=== PATIENT | female | born 1960 | race Caucasian/White ===

== ENCOUNTER 2025-08-14 10:57 | Outpatient (CLI) | payer MEDICARE, MEDICAID, SELFPAY ==
--- NOTE | ~2025-08-14 | XR_ITS ---
EXAMINATION: XR finger 5th LT min 2V, 08/14/2025 11:20 CDT HISTORY: M20.039 - [place]-neck deformity of unspecified finger(s), COMPARISON: No comparisons available. Findings: No acute fracture or malalignment. Moderate degenerative changes with deformity of the digit noted with the distal interphalangeal joint held in flexion. Soft tissues unremarkable. Impression: No acute fracture or malalignment. Reviewed, dictated and finalized at location P. Impression: No acute fracture or malalignment.
--- OUTSIDE RECORDS SUMMARY | 2025-08-14 13:54 | XMS_ITS | Patient Health Record ---
Author Organization [facility] As [employer] Address [address] [place] [address] Care Team Providers Care Return To Vendor Name Role Phone Willow Lala Unavailable [phone] Reason For Referral No Information Medications Medication SIG (Take, Route, Frequency, Duration) Notes Start Date End Date Status Tymlos 80 mcg (3,120 mcg/1.56 mL) Solution Pen-injector Subcutaneous *Pick strength-form from [employer] Pix[employer] for eRX* 04/23/2022 Active Cyclobenzaprine HCl 10 MG Tablet Oral 04/23/2022 Active DULoxetine HCl 30 MG Capsule Delayed Release Particles Oral 04/23/2022 Active Naproxen 500 MG Tablet Oral 04/23/2022 Active Relistor 150 mg Tablet Oral 04/23/2022 Active Morphine Sulfate ER 15 MG Tablet Extended Release Oral 04/23/2022 Active Escitalopram Oxalate 5 MG Tablet Oral 04/23/2022 Active DULoxetine HCl 60 MG Capsule Delayed Release Particles Oral 04/23/2022 Active busPIRone HCl 10 MG Tablet Oral 04/23/2022 Active oxyCODONE-Acetaminophen 10-325 MG Tablet Oral 04/23/2022 Active Pregabalin 50 MG Capsule Oral 04/23/2022 Active Morphine Sulfate ER 30 MG Tablet Extended Release Oral 04/23/2022 Active Pregabalin 100 MG Capsule Oral 04/23/2022 Active Immunizations Vaccine Route Administration Date Status Comme nts Moderna Covid-19 Vaccine 1st dose Unknown 03/20/2021 Ad ministered Moderna Covid-19 Vaccine 1st dose Unknown 04/17/2021 Ad ministered Moderna Covid-19 Vaccine 1st dose Unknown 11/11/2021 Ad ministered Social History Social History Additional Details Category Social Info Options Details Migrated Social History Migrated Social History Alcohol Intake: None 03/24/2022,Tobacco Years: Former smoker 03/24/2022 Plan Of Treatment No Information Insurance Providers Payer Name Payer Address Payer Phone Subscriber Number Group Number Insured Name Patient Relationship to Insured Coverage Start Date Coverage End Date [employer] Medicare Replacemen t/Advantag e - Ppo [address] [place] RODRIGUEZ [phone] [id number] REMBERTO PERES Self - patient is the insured Medical (General) History Surgical History Surgery Date(Month/Year) Hysterectomy (59768) 12/19/2003
--- OUTSIDE RECORDS SUMMARY | 2025-08-14 13:54 | XMS_ITS | Encounter Summary ---
Author Organization [facility] Healthcare Address [address] [place] [address] Care Team Providers Care Fire Regulator Name Role Phone Greg Brewer PT Unavailable Unavailable Savannah Davies PTA Unavailable Unavailab Tj Interiano MD Primary Care Provider + [phone] Reason for Visit * Reason Onset Date Comments Scheduling Appointments 10/14/2020 confirme d dexa Encounter Details Date Type Department Care Team (Late st Contact Info) Description 10/14/2020 Telephone [facility] [address] [place] [id number] Renu Walls RT Scheduling Appointments (confirmed dexa ) Social History Tobacco Use Types Packs/Day Years Used Date Smoking Tobacco: Former Cigarettes Q uit: 2001 Smokeless Tobacco: Never Alcohol Use Standard Drinks/Week Comments No 0 (1 standard drink = 0.6 oz pur e alcohol) PHQ-2 Answer Date Recorded PHQ-2 Score 6 06/16/2019 Comments No Sex and Gender Information Value Date Recorded Sex Assigned at Not on file 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 Author [facility] Chronic Pain Care Plan Chronic Care Management No change(08/03 9:57 AM CDT) No Viry Eduardo RN Note: Problem: Chronic Pain Goals: 1. Minimize further functional decline 2. Maximize quality of life 3. Control pain Strategies: - Activity/exercise program recommendation - Conservative stepwise pain medicine strategy with multi-disciplinary approach - Recommend healthy lifestyle strategies and compensatory methods as needed documented as of this encounter Visit Diagnoses Not on filedocumented in this encounter Care Teams Fire Regulator Relationship Specialty Start Date End Date Tj Aceves MD [address] [place] [address] PCP - General 07/24/20 Greg Brewer, PT Physical Therapist Physical Therapy 04/21/18 Savannah Davies, GREEN PIPEFITTER Physical Therapist Physical Therapy 05/04/18 documented as of this encounter
--- OUTSIDE RECORDS SUMMARY | 2025-08-14 13:54 | XMS_ITS | Clinical Summary ---
Author Organization [facility] [id number] [facility] Address [address] [place] [address] Care Team Providers Care Bottle Capper Name Role Phone Tj Aceves MD Primary Care Provider [phone] Allergies No known active allergies Medications DULoxetine (CYMBALTA) 20 mg Capsule, Delayed Release(E.C.) Take 20 mg by mouth daily. Active busPIRone (BUSPAR) 10 mg tablet Take 10 mg by mouth 3 times daily. Active HYDROcodone-acet aminophen (NORCO) 5-325 mg tablet Take 1 Tablet by mouth every 4 hours as needed for Pain, Moderate. Active Active Problems Problem Noted Date Diagnosed Date Synovial cyst of lumbar facet joint 08/20/2020 Postlaminectomy syndrome, lumbar region 08/20/20 20 Cervical spondylosis with myelopathy 08/20/2020 Family History Relation Name Status Comments Father Mother Alive Social History Tobacco Use Types Packs/Day Years Used Date Smoking Tobacco: Former Cigarettes Q uit: 2008 Alcohol Use Standard Drinks/Week Comments Yes 0 (1 standard drink = 0.6 oz pur e alcohol) Comments Unknown Sex and Gender Information Value Date Recorded Sex Assigned at Not on file Legal Sex Female 8:52 AM CDT Gender Identity Not on file Sexual Orientation Not on file Last Filed Vital Signs Vital Sign Reading Time Taken Comments Blood Pressure - - Pulse - - Temperature 37 C (98.6 F) 08/20/2020 11:46 AM CDT Respiratory Rate - - Oxygen Saturation - - Inhaled Oxygen Concentration - - Weight 56.7 kg (125 lb) 08/20/2020 11:46 AM CDT Height 167.6 cm (5' 6) 08/20/2020 11:46 AM CDT Body Mass Index 20.18 08/20/2020 11:46 AM CDT Plan of Treatment Health Maintenance Due Date Last Done Comments DTAP/TDAP/TD VACCINES (1 - Tdap) 01/16/1979 BREAST CANCER SCREENING 2000 COLORECTAL SCREENING 01/16/2005 Colorectal Cancer Screening 01/16/2005 FIT-DNA Q 3 years 01/16/2005 FIT/FOBT Q 1 year 01/16/2005 Flex Sig/CT Colonography Q 5 years 01/16/2005 PNEUMOCOCCAL VACCINE 50+ YEARS (1 of 1 - PCV) 01/17/20 10 ZOSTER VACCINE (1 of 2) 01/16/2010 OSTEOPOROSIS SCREENING 01/16/2025 INFLUENZA VACCINE (#1) 2025 08/10/2018 RSV VACCINE (60+ or ) (1 - 1-dose 75+ series) 01/16/2035 Insurance [employer] PPO MCR Care Teams Bottle Capper Relationship Specialty Start Date End Date Tj Aceves MD [address] [place] [phone] PCP - General Family Practice 05/30/20
--- OUTSIDE RECORDS SUMMARY | 2025-08-14 13:54 | XMS_ITS | Clinical Summary ---
Author Organization [facility] [place] Address [address] [place] [address] Care Team Providers Care Comic Writer Name Role Phone Greg Brewer PT Unavailable Unavailable Savannah Davies PTA Unavailable Unavailab Tj Interiano MD Primary Care Provider + [phone] Allergies Active Allergy Reactions Criticality Noted Date Comments Ragweed Other (See comments) Low 06/16/2017 congestion Medications methylnaltrexon e (Relistor) 150 mg tablet Take 3 tablets by mouth daily as needed Active ALPRAZolam (XANAX) 0.5 mg tablet Take by mouth every 6 (six) hours as needed 09/29/2023 Active amitriptyline (ELAVIL) 50 mg tablet Take 1 tablet (50 mg total) by mouth nightly Active ergocalciferol (VITAMIN D) 50,000 unit capsule TAKE 1 CAPSULE BY MOUTH 1 TIME EVERY WEEK Active DULoxetine DR (CYMBALTA) 60 mg capsule Take 1 capsule (60 mg total) by mouth daily 07/11/2024 Active oxyCODONE (ROXICODONE) 10 mg tablet Take 1 tablet (10 mg total) by mouth as needed 07/11/2024 Active ibuprofen 200 mg tab/cap Take 2 tablet/capsu le (400 mg total) by mouth every 8 (eight) hours as needed for pain Active Movantik 25 mg tablet Take 1 tablet (25 mg total) by mouth every morning 08/07/2024 Active Active Problems Problem Noted Date Diagnosed Date Other osteoporosis without current pathological fracture 09/01/2024 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 05/21/2024 Osseous and subluxation sten osis of intervertebral foramina of lumbar region 05/21/2024 Connective tissue and disc s tenosis of intervertebral foramina, lumbar region 08/12/2022 Overview (08/12/2022): Added automatically from request for surgery [id number] Displacement of lumbar intervertebral disc 12/28 Synovial cyst of lumbar facet joint 08/20/2020 Venous insufficiency 05/11/2019 Abnormal electrocardiogram 04/24/2019 Generalized anxiety disorder 04/24/2019 Localized edema 04/24/2019 Pain in unspecified limb 04/24/2019 Personal history of nicotine dependence 04/24/20 Cervical post-laminectomy syndrome 09/05/2018 Encounter for screening colonoscopy 08/30/2018 Overview (08/30/2018): Added automatically from request for surgery [id number] Screening for breast cancer 08/10/2018 Screening for colon cancer 08/10/2018 Need for influenza vaccination 08/10/2018 Lumbar radiculopathy 06/22/2018 Chronic bilateral low back pain with right-sided sciatica 05/25/2018 Lumbar post-laminectomy syndrome 05/25/2018 Sciatica, right side 05/25/2018 Other chronic pain 05/25/2018 Assessment & Plan (08/10/2018 8:48 PM CDT): Followed by Pain Management-Dr. Nunes. She is dx with Complex regional pain syndrome of right lower extremity He has tried lyrica, baclofen and caudal epidural steroid injections Lumbago 05/04/2018 Complex regional pain syndro me type 1 of right lower extremity 04/25/2018 Syncope 04/21/2018 Assessment & Plan (04/21/2018 5:00 PM CDT): Pt. Reports passing out at home. Pt. States she got up to try to walk and passed out. She states the pain was so severe she did not know if that caused her to pass out. She denies hitting head or hurting herself. Last EKG on 02/26/18 showed sinus rhythm with Incomplete RBBB-I do not see any other ekg's to look compare to. There is mention of patient having a history of WI in MR but I do not see any other documentation to confirm and pt. Is unaware of every having a WI. Other insomnia 04/20/2018 Assessment & Plan (08/10/2018 8:55 PM CDT): Pt. Continues to report insomnia. Reports she only sleeps 2-4 hours per night because of her pain. She is on Trazodone, Amitriptyline for sleep. Reports fatigue all the time She continues to report if she could sleep she would feel much better. Recommend she get a sleep evaluation done by Dr. Linton Vitamin D deficiency 04/20/2018 Assessment & Plan (08/10/2018 2:48 PM CDT): Will renew dose Assessment & Plan (04/21/2018 7:17 PM CDT): Pt. Had a very low Vit D level in 2015 but never was told to take any supplements. I will recheck her Vit D level and start a Vit D replacement. Polyneuropathy 04/20/2018 Assessment & Plan (08/10/2018 8:44 PM CDT): Pt. Reports right leg with severe burning pain with numbness, tingling. Pt. Reports that her feet always feel cold although they are not cold to touch. Pt. Reports a hard time sleeping because of the pain. She states it hurts to walk on it. Pt. Did walk into the office today with assistive devices (cane) and gait was abnormal. Pt. States her legs hurt to even have her pant leg touch it or for me to touch it. She states that this began and has gotten worse since her surgery in February. 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 She went to the ER on 04/04/18- with c/o severe right lower extremity pain which onset one year ago after falling but worsened one month ago after having surgery. She also has back pain. She has tried Ibuprofen and Oxycodone with no relief. Patient denies any bowel or bladder Although reports urinary urgency and some stress/urge incontinence. She did follow up with Dr. Samuel but he told her to see pain management. She did have a nerve conduction test in 2016 because of lower extremity weakness-it showed 1. VERY MILD BILATERAL MEDIAN SENSORY ENTRAPMENT NEUROPATHY AT THE FLEXOR RETINACULUM, FOR EXAMPLE CARPAL TUNNEL SYNDROME. 2. MILD RIGHT ULNAR ENTRAPMENT NEUROPATHY AT GUYON'S CANAL. THERE WAS NO ELECTROPHYSIOLOGICAL EVIDENCE SUGGESTIVE OF SIGNIFICANT LARGE FIBER NEUROPATHY OF BILATERAL LOWER EXTREMITIES. THE NEEDLE EMG STUDY DID NOT SHOW ANY ONGOING DENERVATION. In December 2017 she had arterial doppler which The right and left ankle-brachial indices measure 1.1 and 1.06, respectively-NORMAL Pt. Also had similar reports of progressive leg weakness and burning pain of legs and had an MRI done 2015-showed IMPRESSION: 1. MINIMAL SCATTERED NONSPECIFIC WHITE MATTER CHANGES. 2. OTHERWISE NORMAL NONCONTRAST MRI OF THE BRAIN. It looks like she was worked up in 2016 with labs-AISHWARYA, RF, ESR, CK, B12, Vit D, immunofixation electrophoresis, protein electrophoresis which were all negative. Completed a round of steroids but reports no improvement Pain management-Dr. Nunes from [facility] is evaluating patient Recent labs were unremarkable Repeat Nerve conduction test showed: EMG done 08/03/18 FINDINGS: 1. The distal latencies, conduction velocities and amplitudes of the bilateral median nerves, ulnar nerves and sensory radial nerves are within normal limits. 2. The distal latencies, conduction velocities and amplitudes of the bilateral peroneal and posterior tibial nerves are within normal limits. 3.The sural nerve responses could not be obtained. 4.No abnormalities noted on needle EMG examination of selected muscles in the right lower extremity. IMPRESSION: 1.No significant abnormalities on the above study except for absent sural nerve responses. This may reflect a mild or early sensory neuropathy. It should be noted that a normal EMG evaluation does not entirely rule out the possibility of a radiculopathy. Clinical correlation is recommended. She did see Dr. Stephenson (neurology) and another neurologist that specializes in neuropathy for a second opinion. She has not tolerated Lyrica. Baclofen, Tizanidine has not helped. She stated that ibuprofen seemed to help the most Assessment & Plan (06/12/2018 11:21 PM CDT): Pt. Reports right leg with severe burning pain with numbness, tingling. Pt. Reports that her feet always feel cold although they are not cold to touch. Pt. Reports a hard time sleeping because of the pain. She states it hurts to walk on it. Pt. Did walk into the office today with assistive devices (cane) and gait was abnormal. Pt. States her legs hurt to even have her pant leg touch it or for me to touch it. She states that this began and has gotten worse since her surgery in February. 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 She went to the ER on 04/04/18- with c/o severe right lower extremity pain which onset one year ago after falling but worsened one month ago after having surgery. She also has back pain. She has tried Ibuprofen and Oxycodone with no relief. Patient denies any bowel or bladder dysfunction. She did follow up with Dr. Samuel but he told her to see pain management. She did have a nerve conduction test in 2016 because of lower extremity weakness-it showed 1. VERY MILD BILATERAL MEDIAN SENSORY ENTRAPMENT NEUROPATHY AT THE FLEXOR RETINACULUM, FOR EXAMPLE CARPAL TUNNEL SYNDROME. 2. MILD RIGHT ULNAR ENTRAPMENT NEUROPATHY AT GUYON'S CANAL. THERE WAS NO ELECTROPHYSIOLOGICAL EVIDENCE SUGGESTIVE OF SIGNIFICANT LARGE FIBER NEUROPATHY OF BILATERAL LOWER EXTREMITIES. THE NEEDLE EMG STUDY DID NOT SHOW ANY ONGOING DENERVATION. In December 2017 she had arterial doppler which The right and left ankle-brachial indices measure 1.1 and 1.06, respectively-NORMAL Pt. Also had similar reports of progressive leg weakness and burning pain of legs and had an MRI done 2016-showed IMPRESSION: 1. MINIMAL SCATTERED NONSPECIFIC WHITE MATTER CHANGES. 2. OTHERWISE NORMAL NONCONTRAST MRI OF THE BRAIN. It looks like she was worked up in 2016 with labs-AISHWARYA, RF, ESR, CK, B12, Vit D, immunofixation electrophoresis, protein electrophoresis which were all negative. Completed a round of steroids but reports no improvement Pain management-Dr. uNnes from [facility] is evaluating patient Recent labs were unremarkable Since her last nerve conduction test in 2016, she has had increase symptoms and changes in her MRI. I recommend getting another nerve conduction test and consult Neurology ( neuropathy specialist) and Rheumatology Assessment & Plan (04/21/2018 8:05 PM CDT): Pt. Reports right leg with severe burning pain with numbness, tingling. Pt. Reports a hard time sleeping because of the pain. She states it hurts to walk on it. Pt. Did walk into the office today without any assistive devices but gait was abnormal. Pt. States her legs hurt to even have her pant leg touch it or for me to touch it. She states that this began and has gotten worse since her surgery in February. 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 She went to the ER on 04/04/18- with c/o severe right lower extremity pain which onset one year ago after falling but worsened one month ago after having surgery. She also has back pain. She has tried Ibuprofen and Oxycodone with no relief. Patient denies any bowel or bladder dysfunction. She did follow up with Dr. Samuel but he told her to see pain management. She has not been able to see them-it may be related to finding a provider that accepts her insurance. She did have a nerve conduction test in 2016 because of lower extremity weakness-it showed 1. VERY MILD BILATERAL MEDIAN SENSORY ENTRAPMENT NEUROPATHY AT THE FLEXOR RETINACULUM, FOR EXAMPLE CARPAL TUNNEL SYNDROME. 2. MILD RIGHT ULNAR ENTRAPMENT NEUROPATHY AT GUYON'S CANAL. THERE WAS NO ELECTROPHYSIOLOGICAL EVIDENCE SUGGESTIVE OF SIGNIFICANT LARGE FIBER NEUROPATHY OF BILATERAL LOWER EXTREMITIES. THE NEEDLE EMG STUDY DID NOT SHOW ANY ONGOING DENERVATION. In December 2017 she had arterial doppler which The right and left ankle-brachial indices measure 1.1 and 1.06, respectively-NORMAL Pt. Also had similar reports of progressive leg weakness and burning pain of legs and had an MRI done 2016-showed IMPRESSION: 1. MINIMAL SCATTERED NONSPECIFIC WHITE MATTER CHANGES. 2. OTHERWISE NORMAL NONCONTRAST MRI OF THE BRAIN. It looks like she was worked up in 2016 with labs-AISHWARYA, RF, ESR, CK, B12, Vit D, immunofixation electrophoresis, protein electrophoresis which were all negative. Will try some steroids to help with pain and inflammation Consult pain management Get labs-cbc, cmp, esr, crp Shortness of breath 04/20/2018 Tick bite 04/20/2018 Assessment & Plan (04/21/2018 7:18 PM CDT): Pt. Had tick bite to left side about 3-4 days ago. States her daughter pulled it off. She does have a red lesion about 3cm. Will give her a one time dose of Doxycyline and continue to monitor. Pt. Already had her symptoms prior to getting a tick bite. s/p Right L4-5 ana maria-laminectomy on 02/22/201810/2017 Right L4-5 lateral recess stenosis 01/24/2018 s/p C3-C7 laminectomy and C2 -T1 posterior spinal fusion on 11/02/2017 11/02/2017 Assessment & Plan (04/20/2018 11:57 AM CDT): PROCEDURE 1. C3-C7 laminectomy 2. C2-T1 posterior cervical fusion 3. Allograft 4. Use of Autograft By Dr. Samuel Cervical spondylosis with myelopathy 10/01/2017 Major depressive disorder without psychotic feat ures 06/16/2017 Abnormal gait 06/03/2016 Overview (01/28/2017): Abnormal gait Assessment & Plan (06/10/2018 9:23 AM CDT): recommend she see neurologist again. She saw Dr. Duckworth back in 2015 and worked up. At that time labs were negative and her MRI of her spine had no stenosis. Since then, she has had MRI's of her C-spine which showed significant changes-cord compression, stenosis, etc-IMPRESSION: C3-C4 SPONDYLOSIS , LEFT CENTRAL OSTEOPHYTE, CORD COMPRESSION AND MODERATE TO SEVERE CENTRAL WITH MODERATE LEFT FORAMINAL STENOSIS. C4-C5 SPONDYLOSIS, SHORT PEDICLES, SEVERE CENTRAL STENOSIS, CORD COMPRESSION, AND MODERATE TO SEVERE FORAMINAL STENOSIS. C5-C6 SPONDYLOSIS WITH RIGHT CENTRAL OSTEOPHYTE, CORD COMPRESSION, SEVERE CENTRAL AND [id number] FORAMINAL STENOSIS. C6-C7 SPONDYLOSIS WITH MILD CENTRAL AND MODERATE LEFT FORAMINAL STENOSIS. FOCAL CORD SIGNAL CHANGE AT C5 AND C6 SUGGESTING MYELOMALACIA. 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 She had spine surgery by Dr. Samuel. Also showed: An ovoid circumscribed nonspecific 2.5 x 2 cm right paramedian subcutaneous nodule is seen centered at T2-T3 possibly sebaceous or epidermal inclusion cyst. She needs a repeat Mri or Thoracic and Lumbar spine and Brain- and see Neuro. I am not sure she can get MRI with her Spine surgery and instrumentation. Dr. Nunes of pain management did just order a MRI of her Spine. She last had a nerve conduction test in 2016. Prior to seeing the Neurologist, she should get an updated one since her symptoms have changed Assessment & Plan (04/21/2018 7:42 PM CDT): I recommend she see neurologist again. She saw Dr. Duckworth back in 2016 and worked up. At that time labs were negative and her MRI of her spine had no stenosis. Since then, she has had MRI's of her C-spine which showed significant changes-cord compression, stenosis, etc-IMPRESSION: C3-C4 SPONDYLOSIS , LEFT CENTRAL OSTEOPHYTE, CORD COMPRESSION AND MODERATE TO SEVERE CENTRAL WITH MODERATE LEFT FORAMINAL STENOSIS. C4-C5 SPONDYLOSIS, SHORT PEDICLES, SEVERE CENTRAL STENOSIS, CORD COMPRESSION, AND MODERATE TO SEVERE FORAMINAL STENOSIS. C5-C6 SPONDYLOSIS WITH RIGHT CENTRAL OSTEOPHYTE, CORD COMPRESSION, SEVERE CENTRAL AND [id number] FORAMINAL STENOSIS. C6-C7 SPONDYLOSIS WITH MILD CENTRAL AND MODERATE LEFT FORAMINAL STENOSIS. FOCAL CORD SIGNAL CHANGE AT C5 AND C6 SUGGESTING MYELOMALACIA. 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 She had spine surgery by Dr. Samuel. Also showed: An ovoid circumscribed nonspecific 2.5 x 2 cm right paramedian subcutaneous nodule is seen centered at T2-T3 possibly sebaceous or epidermal inclusion cyst. She needs a repeat Mri or Thoracic and Lumbar spine and Brain- and see Neuro. I am not sure she can get MRI with her Spine surgery and instrumentation. Encounters Date Type Department Care Team Description 07/24/[address] Medical Office Building [address] [place] [address] Ruel Cagle NP 05/18/2025 Orders Only [facility] [address] [place] [address] Mariann Crane, MANUELA from Last 3 Months Immunizations Immunization Administration Dates Next Due Influenza, Quadrivalent, Spl it, Preservative Free, Intramuscular 09/21/2020,08/10/2018 Influenza, Unspecified 06/25/2017 Tdap 04/11/2019 Surgical History Surgery Date Site/Laterality Comments CHOLECYSTECTOMY 10/25/1977 - 10/24/1978 SPINE SURGERY cervical fusion LAMINECTOMY 02/22/2018 HYSTERECTOMY 10/25/2001 - 10/24/2002 10 + yrs US ABDOMEN COMPLETE W LIVER DOPPLER (C) 05/05/2021 Right Medical History Medical History Date Comments Hypertension Hypertension Depression 25 years Leg pain 03/2016 Chronic obstructive pulmonary disease COPD patient denies Arthritis Myocardial infarction (HCC) Myoc ardial infarction patient denies Irritable bowel syndrome constip ation/diarrhea Urinary incontinence Peripheral neuropathy Anxiety Chronic pain Back pain Depression Constipation Poor appetite Bruises easily Swelling of both ankles Irritability Memory loss Suicidal thoughts Headache Arthritis Family History Medical History Relation Name Comments Aneurysm Brother 1 Jb brain Diabetes Brother 1 Jb Heart disease Brother 1 Jb Hypertension Brother 1 Jb Cancer Brother 2 Abad Jr lung Diabetes Brother 2 Abad Jr Hypertension Brother 2 Abad Jr Diabetes Brother 3 Randal Down syndrome Brother 3 Randal Heart disease Brother 3 Randal Hypertension Brother 3 Randal Diabetes Father Abad Diabetes mellit us; Heart disease Father Abad Hypertension Father Abad Hypertension; Hypertension Mother Norma Hypertension; Osteoporosis Mother Norma Broken bones Neg Hx Hip fracture Neg Hx Kyphosis Neg Hx Scoliosis Neg Hx Relation Name Status Comments Brother 1 Jb Brother 2 Abad Jr (Age 70) Brother 3 Randal Father Abad (Age 70) Mother Norma Social History Tobacco Use Types Packs/Day Years Used Date Smoking Tobacco: Former Cigarettes Q uit: 2001 Smokeless Tobacco: Never Tobacco Cessation:Counseling Given: Not Answered Alcohol Use Standard Drinks/Week Comments No 0 (1 standard drink = 0.6 oz pur e alcohol) AUDIT-C Answer Date Recorded Q1: How often do you have a drink containing alc ohol? Never 08/03/2024 Q2: How many drinks containi ng alcohol do you have on a typical day when you are drinking? 1 or 2 08/03/2024 Q3: How often do you have six or more drinks on one occasion? Never 08/03/2024 PHQ-2 Answer Date Recorded PHQ-2 Score 6 06/16/2019 Hunger Vital Sign Answer Date Recorded Within the past 12 months, y ou worried that your food would run out before you got the money to buy more. Never true 07/10/20 24 Within the past 12 months, t he food you bought just didn't last and you didn't have money to get more. Never true 07/10/2024 Personal Safety Answer Date Recorded Have you ever been in or are you currently in a harmful physical or emotional relationship or is someone making you feel afraid or unsafe? 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 Gender Identity Not on file Sexual Orientation Not on file Obstetrics History Para Term AB IAB SAB Ectopic Multiple Livin g Live Births 3 Date Outcome GA Total Labor Labor/2nd/3rd Weight Sex Type Anes PTL Joanna A1 A5 Name Clin Last Filed Vital Signs Vital Sign Reading Time Taken Comments Blood Pressure 114/88 03/21/2025 4:26 AM CDT Pulse 93 03/21/2025 4:26 AM CDT Temperature 36.8 C (98.2 F) 03/21/2025 4:26 AM CDT Respiratory Rate 20 03/21/2025 4:26 AM CDT Oxygen Saturation 94% 03/21/2025 4:26 AM CDT Inhaled Oxygen Concentration - - Weight 63.5 kg (140 lb) 03/20/2025 11:19 PM CDT Height 166.4 cm (5' 5.5) 03/20/2025 11:19 PM CD T Body Mass Index 22.94 03/20/2025 11:19 PM CDT Plan of Treatment Health Maintenance Due Date Last Done Comments Colon Cancer Screening-Colonoscopy 1960 Hepatitis C Screening 1960 Hepatitis B Screening 01/16/1978 Pneumococcal vaccine 65+ (1 of 1 - PCV) 01/16/2010 Zoster Vaccine (1 of 2) 01/16/2010 Breast Cancer Screening-Mammogram 08/24/2019 018, 06/23/2017 Depression Screening 01/19/2020 01/18/2019, 01/18/2019, 12/12/2018, Additional history exists Fall Risk Assessment 10/14/2024 10/14/2023, 01/18/2019, 12/12/2018, Additional history exists Well Visit 65+ 01/16/2025 Covid-19 Vaccine (4 - 2024-2 6 season) 2025 11/11/2021, 04/17/2021, 03/20/2021 Influenza Vaccine (#1) 2025 , 08/10/2018, 06/25/2017 Osteoporosis Screening-Bone Density Scan 08/23/2026 08/23/2024, 02/16/2022, 11/12/2020, Additional history exists DTaP/Tdap/Td Vaccine (2 - Td or Tdap) 04/11/2029 04/11/2019 Goals Goal Patient Goal Type Associated Problems Recent Progress Patient-Stated? Author CCM Chronic Pain Care Plan Chronic Care Management No change(08/03 9:57 AM CDT) No Viry Eduardo, MANUELA Note: Problem: Chronic Pain Goals: 1. Minimize further functional decline 2. Maximize quality of life 3. Control pain Strategies: - Activity/exercise program recommendation - Conservative stepwise pain medicine strategy with multi-disciplinary approach - Recommend healthy lifestyle strategies and compensatory methods as needed Medical Devices Implanted Type Area Boat Person Device Identifier Shelf Expiration Date Model / Serial / Lot Screw Bone Mountaineer Mini L14 Mm Od3.5 Mm Spine Occipitocervicothoracic Polyaxial Fix Angle Nonsterile Latex Free 3.5 Mm Armen - [id number] Implanted:Qty: 4 on 11/02/2017 by Leroy Samuel MD at [facility] Screw N/A: Spine Cervical Depuy Spine [id number] / / Screw Bone Mountaineer Titanium L26 Mm Od4 Mm Spine Occipitocervicothoracic Favor Angle Minipolyaxial Self Form Tip Blue Neela Midline Fixation System - [id number] Implanted:Qty: 1 on 11/02/2017 by Leroy Samuel MD at [facility] Screw N/A: Spine Cervical Depuy Spine [id number] / / Screw Bone Mountaineer Titanium L24 Mm Od4 Mm Spine Occipitocervicothoracic Favor Angle Minipolyaxial Self Form Tip Blue Neela Midline Fixation System - [id number] Implanted:Qty: 1 on 11/02/2017 by Leroy Samuel MD at [facility] Screw N/A: Spine Cervical Depuy Spine [id number] / / Graft Bone Rachel Demineralized Bone Matrix 5 Ml Putty Jar - [id number] - [id number] Implanted:Qty: 1 on 11/02/2017 by Leroy Samuel MD at [facility] N/A: Spine Cervical Spinal Graft Tech 03/17/2020 [id number] / [id number] / Screw Bone Mountaineer Od3.5 Mm Spine Occipital Inner Nonsterile Latex Free 3.5 Mm Armen - [id number] Implanted:Qty: 10 on 11/02/2017 by Leroy Samuel MD at [facility] N/A: Spine Cervical Depuy Spine [id number] / / Armen Spinal Mountaineer L200 Mm Od3.5 Mm Spine Occipitocervicothoracic Nonsterile Latex Free - [id number] Implanted:Qty: 2 on 11/02/2017 by Leroy Samuel MD at [facility] N/A: Spine Cervical Depuy Spine [id number] / / Screw Bone Mountaineer Mini L20 Mm Od3.5 Mm Spine Occipitocervicothoracic Polyaxial Fix Angle Nonsterile Latex Free 3.5 Mm Armen - [id number] Implanted:Qty: 2 on 11/02/2017 by Leroy Samuel MD at [facility] N/A: Spine Cervical Depuy Spine [id number] / / Screw Bone Mountaineer Mini L18 Mm Od4 Mm Spine Occipitocervicothoracic Polyaxial Midline Nonsterile Latex Free 3.5 Mm Armen - [id number] Implanted:Qty: 2 on 11/02/2017 by Leroy Samuel MD at [facility] N/A: Spine Cervical Depuy Spine [id number] / / Procedures Procedure Name Priority Date/Time Associated Diagnosis Comments COMPREHENSIVE METABOLIC PANEL Routine 05/23/2025 2:10 PM CDT Other osteoporosis without current pathological fracture DEXA TBS AXIAL SKELETON BONE DENSITY 1 OR MORE SITES Schedule Routine, Read Routine (OP Routine) 08/23/2024 1:52 PM CDT Age-related osteoporosis without current pathological fracture SCREENING MAMMOGRAM BILATERAL W GERMAINE Schedule Routine, Read Routine (OP Routine) 08/24/2018 3:01 PM CDT Screening for breast cancer from Last 3 Months or Most Recently Relevant to Health Maintenance Results * (ABNORMAL) Comprehensive metabolic panel (05/23/2025 2:10 PM CDT) Glucose 109(H) 65 - 99 mg/dL [facility] Comment: Fasting reference interval For someone without known diabetes, a glucose value between 100 and 125 mg/dL is consistent with prediabetes and should be confirmed with a follow-up test. BUN 12 7 - 25 mg/dL [facility] Creatinine 0.69 0.50 - 1.05 mg/dL [facility] eGFR 96 > OR = 60 mL/min/1.7 3m2 [facility] BUN/creat ratio SEE NOTE: 6 - 22 (calc) [facility] Comment: Not Reported: BUN and Creatinine are within reference range. Sodium 139 135 - 146 mmol/L [facility] Potassium, pl 4.0 3.5 - 5.3 mmol/L [facility] Chloride 102 98 - 110 mmol/L [facility] CO2 30 20 - 32 mmol/L [facility] Calcium 9.1 8.6 - 10.4 mg/dL [facility] Protein, sr 6.8 6.1 - 8.1 g/dL [facility] Albumin 4.0 3.6 - 5.1 g/dL [facility] GLOBULIN 2.8 1.9 - 3.7 g/dL (calc) [facility] Alb/glob ratio 1.4 1.0 - 2.5 (calc) [facility] Bilirubin, total 0.3 0.2 - 1.2 mg/dL [facility] Alk phos 112 37 - 153 U/L [facility] AST 27 10 - 35 U/L [facility] ALT (SGPT) 23 6 - 29 U/L [facility] Blood 05/23/2025 2:10 PM CDT 05/23/2025 2:10 PM CDT us Pierre Doe MD LAB BLOOD ORDERABLES Final Resu lt [facility] [id number] [address] [id number] * Dexa TBS Axial Skeleton Bone Density 1 or more sites (08/23/2024 1:52 PM CDT) Anatomical Region Laterality Modality Wrist, Body N/A Radiographic Asha ging Narrative 08/25/2024 2:33 AM CDT Patient Name: Krystyna Medina Date of : 1960 Date of scan: 08/23/2024 Bone mineral density was performed on a [employer] Discovery Densitometer. Based on machine cross-calibration and precision studies the least significant changes of this densitometer is 0.024 g/cm2 at the spine, 0.020 g/cm2 at the total proximal femur, and 0.014g/cm2 at the forearm. HISTORY: This is a 64 y.o. postmenopausal female with a history of osteoporosis and vitamin D deficiency. She reports that she quit smoking about 22 years ago. Her smoking use included cigarettes. She has never used smokeless tobacco. Currently on treatment with vitamin D and alendronate (Fosamax), previously treated with abaloparatide (Tymlos), and current complaint of back pain and leg pain. INDICATIONS: Menopause status, treatment monitoring, vitamin D deficiency, and history of osteoporosis. FINDINGS: BONE MINERAL DENSITY OF THE LUMBAR SPINE Bone Mineral Density (BMD) of the lumbar spine was measured from L1-L4 and the average density was calculated to be 0.818 gm/cm2. This corresponds to a T-score (standard deviations from the mean of young adults) of -2.1 . When compared to the previous study of 02/16/2022 there has been no significant changes in bone density. BONE MINERAL DENSITY OF THE PROXIMAL FEMUR Bone Mineral Density (BMD) of the left hip total was found to be 0.568 gm/cm2. This corresponds to a T-score standard deviations from the mean of young adults of -3.1. Femoral neck is 0.452 gm/cm2 with a T-score (standard deviations from the mean of young adults) of -3.6. When compared to the previous study of 02/16/2022 there has been no significant changes in bone density. SUMMARY: Bone mineral density shows evidence of osteoporosis and marked increase risk of fracture. There has been no significant changes in bone density since previous measurement. The lumbar spine Trabecular Bone Score is 1.267 which suggests partially degraded bone microarchitecture compared to the general population. Final decisions regarding diagnostic or therapeutic recommendations should include BMD, TBS, additional clinical risk factors as well the clinical context of the patient. Please see attached TBS results for further details. ADDITIONAL COMMENTS: Postmenopausal Women and Men Over 50: Diagnostic criteria: Osteoporosis: BMD at or below -2.5 T-score; Osteopenia (low bone mass): BMD between -1.0 and -2.5 T-score. If the patient has a history of a fragility fracture, a fracture that occurred with trauma equivalent to a fall from a standing position or less, then the diagnosis is osteoporosis regardless of bone density. The history and data sections of the bone mineral density scan were prepared by Maria Teresa Peck(Linda) ROSEMARIE who is accredited by the International Society of Clinical Densitometry. The overall patient assessment and scan interpretation were performed by Pierre Doe M.D. who is certified by the International Society of Clinical Densitometry. [id number] Pierre Doe MD IM DXA PROCEDURES Final Result * SCREENING MAMMOGRAM BILATERAL W GERMAINE (08/24/2018 3:01 PM CDT) Anatomical Region Laterality Modality Breast Bilateral Mammography 08/24/2018 3:02 PM CDT Impressions 08/24/2018 3:03 PM CDT BIRADS Category 2: Benign finding(s). Digital technology was employed plus computer-aided detection software (R2) was utilized in interpretation of these images. This facility utilizes a reminder system to notify patients of yearly mammograms. Electronically signed by: Rex Winkler M.D. Narrative 08/24/2018 3:03 PM CDT EXAMINATION: Digital screening mammogram with tomosynthesis. HISTORY: Breast cancer screening PRIOR: 06/23/2017 DENSITY: Heterogeneously dense which could obscure small masses FINDINGS: Little change is noted. No new dominant mass, architectural distortion, nipple retraction, skin thickening, or suspicious calcifications are seen. A few benign calcic lesions are present. Willow Galeana NP IMG MAMMO PROCEDURES Kirti l Result from Last 3 Months or Most Recently Relevant to Health Maintenance Insurance [facility] [place] MEDICAID [facility] MEDICARE [employer] [facility] MEDICARE ADVANTAGE [facility] MEDICARE ADVANTAGE Advance Directives For more information, please contact: [phone] * Full Code (Latest Code Status on File) Date Activated Date Inactivated Comments 11/02/2017 3:16 PM 11/10/2017 6:00 PM Care Teams Comic Writer Relationship Specialty Start Date End Date Tj Aceves MD [address] [place] [address] PCP - General 07/24/20 Greg Brewer, PT Physical Therapist Physical Therapy 04/21/18 Savannah Davies PTA Physical Therapist Physical Therapy 05/04/18
--- OUTSIDE RECORDS SUMMARY | 2025-08-14 13:54 | XMS_ITS | Clinical Summary ---
Author Organization [facility] Address [address] [address] Care Team Providers Care Sound Equipment Mechanic Name Role Phone Unavailable Primary Care Provider Unavailabl e Source Comments [facility],non-owned Affiliates and Associated Physician Practices is amultiple site organization consisting of ambulatory clinics and hospital sitesin [place], [place], [place] and [place]. This disclosure is being madepursuant to the Care Everywhere program and may not contain all information available regarding this patient. Last updated 18.[facility] [email or web address] Allergies No known active allergies Medications * Be aware that medications may not be up to date on this document. Alwaysverify current medications with the patient. busPIRone (BUSPAR) 10 MG tablet TK 1 T PO TID 0 Active diazePAM (VALIUM) 2 MG tablet TK 1 T PO Q 8 H PRN 0 Active diclofenac sodium EC (VOLTAREN) 75 MG tablet TK 1 T PO QD 0 Active DULoxetine (CYMBALTA) 60 MG capsule TK 1 C PO QD 0 Active methocarbamol (ROBAXIN) 750 MG tablet TK 1 T PO BID PRN 0 Active nitrofurantoin monohyd macro crystals (MACROBID) 100 MG capsule TK ONE C PO Q 12 H FOR 10 DAYS 0 Active traMADol (ULTRAM) 50 MG tablet TK 1 T PO Q 6 H PRN 0 Active traZODone (DESYREL) 100 MG tablet TK 1 T PO QHS PC 0 Active pregabalin (LYRICA) 150 MG capsuleIndications :Lumbar radiculopathy Take 1 capsule by mouth 3 times daily 90 capsule 3 0 Active Active Problems Problem Noted Date Diagnosed Date Chronic bilateral low back pain with right-sided sciatica 05/25/2018 Back pain with sciatica 05/04/2018 Complex regional pain syndro me type 1 of right lower extremity 04/25/2018 Syncope 04/21/2018 Overview (07/02/2020): Last Assessment & Plan: Pt. Reports passing out at home. Pt. [...] mention of patient having a history of MN in MR but I do not see any other documentation to confirm and pt. Is unaware of every having a MN. Polyneuropathy 04/20/2018 Overview (07/02/2020): Last Assessment & Plan: Pt. Reports right leg with severe burning [...] reports no improvement Pain management-Dr. Nunes from [facility] is evaluating patient Recent labs were unremarkable [...] that ibuprofen seemed to help the most Vitamin D deficiency 04/20/2018 Overview (07/02/2020): Last Assessment & Plan: Will renew dose S/P lumbar laminectomy 02/22/2018 Spinal stenosis, lumbar carole on, with neurogenic claudication 01/24/2018 Fusion of spine of cervical region 11/02/2017 Overview (07/02/2020): Last Assessment & Plan: PROCEDURE 1. C3-C7 laminectomy 2. C2-T1 posterior cervical fusion 3. Allograft 4. Use of Autograft By Dr. Samuel Cervical spondylosis with myelopathy 10/01/2017 Major depressive disorder without psychotic feat ures 06/16/2017 Family History Medical History Relation Name Comments Arthritis - Rheumatoid Brother Diabetes - Type 2 Brother Hypertension Brother Alcohol abuse Father Arthritis - Rheumatoid Father CAD (Coronary Artery Disease) Father Diabetes - Type 2 Father Hypertension Father Alcohol abuse Mother Arthritis - Rheumatoid Mother CVA Mother Hypertension Mother Arthritis - Rheumatoid Sister Asthma Sister Hypertension Sister Relation Name Status Comments Brother Father Mother Sister Social History Tobacco Use Types Packs/Day Years Used Date Smoking Tobacco: Former Cigarettes Smokeless Tobacco: Never Alcohol Use Standard Drinks/Week Comments Yes 0 (1 standard drink = 0.6 oz pur e alcohol) AUDIT-C Answer Date Recorded Q1: How often do you have a drink containing alc ohol? Monthly or less 06/25/2020 Average Number of Drinks Not on file 020 Frequency of Binge Drinking Not on file 10/2019 Comments No Sex and Gender Information Value Date Recorded Sex Assigned at Not on file Legal Sex Female 12:21 PM CDT Gender Identity Not on file Sexual Orientation Not on file Last Filed Vital Signs Vital Sign Reading Time Taken Comments Blood Pressure 113/81 07/02/2020 3:12 PM CDT Pulse 90 07/02/2020 3:12 PM CDT Temperature 36.8 C (98.3 F) 07/02/2020 3:12 PM CDT Respiratory Rate 20 06/25/2020 12:15 PM CDT Oxygen Saturation 96% 07/02/2020 3:12 PM CDT Inhaled Oxygen Concentration - - Weight 56.9 kg (125 lb 6.4 oz) 07/02/2020 3:12 P M CDT Height 167.6 cm (5' 6) 07/02/2020 3:12 PM CDT Body Mass Index 20.24 07/02/2020 3:12 PM CDT Plan of Treatment Health Maintenance Due Date Last Done Comments BONE DENSITY TESTING 1960 COLOGUARD (AGES 45-75) - COL ON CA SCREENING 1960 COLON MONITORING 1960 COLONOSCOPY - COLON CA SCREENING 1960 CT COLONOGRAPHY - COLON CA SCREENING 1960 Colorectal Cancer Screening 1960 FIT - COLON CA SCREENING 1960 FLEX SIG - COLON CA SCREENING 1960 LIPID TESTING 1960 MAMMOGRAM 1960 HIV SCREENING 01/16/1975 HEPATITIS C SCREENING 01/12/1978 DTAP/TDAP/TD VACCINES (1 - Tdap) 01/16/1979 PNEUMOCOCCAL VACCINE 50+ (1 of 1 - PCV) 01/16/2010 ZOSTER VACCINE (1 of 2) 01/16/2010 DEPRESSION SCREENING 10/25/2024 COVID-19 VACCINE (1 - 2023-2 5 season) 2025 INFLUENZA VACCINE (#1) 2025 8, 06/25/2017 Respiratory Syncytial Virus (RSV) Vaccine Pt: or over 60 yrs (1 - 1-dose 75+ series) 01/16/2035 HEPATITIS B VACCINE Aged Out No longe r eligible based on patient's age to complete this topic HIB VACCINE Aged Out No longer eligi ble based on patient's age to complete this topic HPV VACCINE Aged Out No longer eligi ble based on patient's age to complete this topic MENINGOCOCCAL (Group B) VACCINE SHARED DECISION-MAKING Aged Out No longer eligible based on patient's age to complete this topic MENINGOCOCCAL GROUPS A/C/Y/W VACCINE Aged Out No longer eligible b ased on patient's age to complete this topic Insurance AETNA AETNA
== END 2025-08-14 10:58 | disposition home or self-care (01) ==
PROVIDERS: PCP Emergency Medicine; Visit Provider Plastic Surgery
DX: M20.032 Swan-neck deformity of left finger(s) (principal)
CPT/HCPCS: 73140